=== PATIENT | male | born 1955 | race Two or more races ===

== ENCOUNTER 2017-12-15 08:33 | Emergency (ER) | payer MEDICAID, OTHER ==
[~2017-12-15] VITALS: Ht 165.1 cm; Wt 58.1 kg
[2017-12-15 08:33] VITALS: BP 141/92
== END 2017-12-15 09:30 | disposition home or self-care (01) ==
LOC: ER 08:36
DX: Z20.1 Contact with and (suspected) exposure to tuberculosis (principal); I10 Essential (primary) hypertension; F17.200 Nicotine dependence, unspecified, uncomplicated
CPT/HCPCS: 71045-TC; A4606; Z7610